=== PATIENT | female | born 1975 | race Two or more races ===

== ENCOUNTER 2018-12-17 21:19 | Emergency (ER) | payer OTHER ==
[2018-12-17] MEDS ORDERED: ACETAMINOPHEN 500 MG TABLET (FP) PO ONE (21:24)
--- NOTE | 2018-12-17 21:25 | PDOC ---
Rapid Medical Evaluation Time Seen by Provider: 12/17/18 21:22 Medical Evaluation: Allergies Allergy/AdvReac Type Severity Reaction Status Date / Time No Known Allergies Allergy Verified 12/30/15 13:26 12/17/18 21:23 HPI:headache x 3 days in the morning associated with sweating and lightheadness PE:no gross deficits ORDERS: U preg tylenol 12/17/18 21:24 Discharge Disposition - Diagnosis Headache - Referrals - Patient Instructions - Post Discharge Activity
[2018-12-17 21:28] VITALS: BP 155/79; PULSE 91; TEMP 98.5; BMI 22.2
[2018-12-17] MEDS ORDERED: METOCLOPRAMIDE HCL INJECTION 10 MG/2 ML VIAL IVPB ONE (21:30)
[2018-12-17] MEDS ORDERED: ACETAMINOPHEN 1000 MG/100 ML VIAL (NON FORMULARY) IVPB ONE (21:30)
[2018-12-17] MEDS ORDERED: SODIUM CHLORIDE 1,000 ML IV STA (21:30)
[2018-12-17] MEDS ORDERED: METOCLOPRAMIDE HCL INJECTION 10 MG/2 ML VIAL ONE (21:53)
[2018-12-17] MEDS ORDERED: ACETAMINOPHEN INJECTION 100 ML IVPB ONE (21:54)
[2018-12-17 22:39] LABS: BASO % 0.7 % (0-2.0); EOS % 2.1 % (0-4.5); HEMATOCRIT 40.8 % (32.4-45.2); HEMOGLOBIN 13.7 GM/dL (10.7-15.3); LYMPH % 41.1 % (8-40); MCH 31.5 pg (25.7-33.7); MCHC 33.5 g/dl (32.0-36.0); MEAN CELL VOLUME 93.9 fl (80-96); MEAN PLT VOLUME 8.3 fl (7.5-11.1); MONO % 6.1 % (3.8-10.2); PLATELET COUNT 224 K/MM3 (134-434); RBC 4.35 M/mm3 (3.60-5.2); WHITE BLOOD COUNT 8.4 K/mm3 (4.0-10.0)
--- NOTE | 2018-12-17 22:45 | PDOC ---
History of Present Illness - General Chief Complaint: Headache Stated Complaint: HEADACHE/TINGLING SENSATION ON R SIDE FACE Time Seen by Provider: 12/17/18 21:22 History Source: Patient Exam Limitations: No Limitations Past History - Travel Traveled outside of the country in the last 30 days: No Close contact w/someone who was outside of country & ill: No - Past Medical History Allergies/Adverse Reactions: Allergies Allergy/AdvReac Type Severity Reaction Status Date / Time No Known Allergies Allergy Verified 12/17/18 21:23 Home Medications: Ambulatory Orders No Home Medications 0 dose .ROUTE UTDICT 01/31/13 Cephalexin Monohydrate [Keflex -] 500 mg PO Q8H #30 capsule 12/30/15 Ondansetron [Zofran -] 4 mg PO TID PRN #15 tablet 12/30/15 Asthma: No COPD: No Diabetes: No HTN: Yes - Reproductive History (#): 2 Para: 2 - Immunization History Immunization Up to Date: Yes - Suicide/Smoking/Psychosocial Hx Smoking Status: No Smoking History: Never smoked Have you smoked in the past 12 months: No Number of Cigarettes Smoked Daily: 0 Information on smoking cessation initiated: No Hx Alcohol Use: No Drug/Substance Use Hx: No Substance Use Type: None Review of Systems - Review of Systems Able to Perform ROS?: Yes Comments:: 12/17/18 22:40 CONSTITUTIONAL: Absent: fever, chills, diaphoresis, generalized weakness, malaise, loss of appetite HEENT: Absent: rhinorrhea, nasal congestion, throat pain, throat swelling, difficulty swallowing, mouth swelling, ear pain, eye pain, visual Changes CARDIOVASCULAR: Absent: chest pain, loss of consciousness, palpitations, irregular heart rate, peripheral edema RESPIRATORY: Absent: cough, shortness of breath, dyspnea with exertion, orthopnea, wheezing, stridor, hemoptysis GASTROINTESTINAL: Absent: abdominal pain, abdominal distension, nausea, vomiting, diarrhea, constipation, melena, hematochezia GENITOURINARY: Absent: dysuria, frequency, urgency, hesitancy, hematuria, flank pain, genital pain MUSCULOSKELETAL: Absent: myalgia, arthralgia, joint swelling SKIN: Absent: rash, itching, pallor HEMATOLOGIC/IMMUNOLOGIC: Absent: easy bleeding, easy bruising, lymphadenopathy, frequent infections ENDOCRINE: Absent: unexplained weight gain, unexplained weight loss, heat intolerance, cold intolerance NEUROLOGIC: Present: headache, tingling to R side of face Absent: focal weakness or paresthesias, dizziness, unsteady gait, seizure, mental status changes, bladder or bowel incontinence PSYCHIATRIC: Absent: anxiety, depression, suicidal or homicidal ideation, hallucinations. Is the patient limited [place] proficient: No *Physical Exam - Vital Signs Last Vital Signs Temp Pulse Resp BP Pulse Ox 98.5 F 91 H 16 155/79 100 12/17/18 21:24 12/17/18 21:24 12/17/18 21:24 12/17/18 21:24 12/17/18 21:24 - Physical Exam Comments: 12/17/18 22:42 GENERAL: Well developed, well nourished. Awake and alert. No acute distress. HEENT: Normocephalic, atraumatic. PERRLA, EOMI. No conjunctival pallor. Sclera are non- icteric. Moist mucous membranes. Oropharynx is clear. NECK: Supple. Full ROM. No JVD. Carotid pulses 2+ and symmetric, without bruits. No thyromegaly. No lymphadenopathy. CARDIOVASCULAR: Regular rate and rhythm. No murmurs, rubs, or gallops. Distal pulses are 2+ and symmetric. PULMONARY: No evidence of respiratory distress. Lungs clear to auscultation bilaterally. No wheezing, rales or rhonchi. ABDOMINAL: Soft. Non-tender. Non-distended. No rebound or guarding. No organomegaly. Normoactive bowel sounds. MUSCULOSKELETAL Normal range of motion at all joints. No bony deformities or tenderness. No CVA tenderness. EXTREMITIES: No cyanosis. No clubbing. No edema. No calf tenderness. SKIN: Warm and dry. Normal capillary refill. No rashes. No jaundice. NEUROLOGICAL: Alert, awake, appropriate. Cranial nerves 2-12 intact. No deficits to light touch and temperature in face, upper extremities and lower extremities. No motor deficits in the in face, upper extremities and lower extremities. Normoreflexic in the upper and lower extremities. Normal speech. Toes are down- going bilaterally. Gait is normal without ataxia. PSYCHIATRIC: Cooperative. Good eye contact. Appropriate mood and affect. ED Treatment Course - LABORATORY CBC & Chemistry Diagram: 12/17/18 22:20 12/17/18 22:20 - RADIOLOGY Radiology Studies Ordered: Category Date Time Status HEAD CT WITHOUT CONTRAST [CT] Stat CT Scan 12/17/18 22:22 Ordered - Medications Given in the ED: ED Medications Discontinued Medications Generic Name Dose Route Start Last Admin Trade Name Logan CARDENAS Reason Stop Dose Admin Acetaminophen 1,000 mg 12/17/18 21:24 12/17/18 21:52 Tylenol - PO 12/17/18 21:25 Not Given ONCE ONE Diphenhydramine HCl 12.5 mg 12/17/18 21:30 12/17/18 22:05 Benadryl Injection - IVPB 12/17/18 21:31 12.5 mg ONCE ONE Administration Metoclopramide HCl 10 mg 12/17/18 21:30 12/17/18 22:10 Reglan Injection - IVPB 12/17/18 21:31 10 mg ONCE ONE Administration Medical Decision Making - Medical Decision Making 12/17/18 22:43 The patient is a 43-year-old female with no past medical history who presents to the ER today for numbness and headache to the right side of her forehead. The patient states that the headache began this morning and she said it felt like a throbbing sensation. Around 12:00 she noticed that she had visual changes where the vision in her right eye went blurry. She then states that about 5 PM this evening she noticed tingling sensation to the right side of her face. She also notes that at 5:00 she had of pain over the right temporal region and she said it was pulsing in nature. This is never happened to her before she has never had headaches. Denies loss of consciousness, dizziness, lightheadedness, fever, nausea, vomiting. A/P: Headache with tingling On exam patient is neurologically intact with no focal findings, however patient is still reporting right-sided facial tingling Differential diagnosis includes but not limited to complex migraine, stroke, giant cell arteritis, Basic labs, sedimentation rate CRP obtained Migraine cocktail given CT head ordered Sign out given to Mak Galloway NP to trend patient's lab work and CT results. Dispo depends on findings. *DC/Admit/Observation/Transfer Diagnosis at time of Disposition: Headache - Referrals - Patient Instructions - Post Discharge Activity
[2018-12-17 23:01] LABS: ALBUMIN 3.8 g/dl (3.4-5.0); ALK PHOS 52 U/L (45-117); ANION GAP 6 MMOL/L (8-16); BILIRUBIN,TOTAL 0.2 mg/dL (0.2-1); BLOOD UREA NITROGEN 8.6 mg/dL (7-18); CALCIUM 8.5 mg/dL (8.5-10.1); CHLORIDE 108 mmol/L (98-107); CO2 24 mmol/L (21-32); CREATININE 0.5 mg/dL (0.55-1.3); GLUCOSE,RANDOM 95 mg/dL (74-106); SGOT/AST 10 U/L (15-37); SGPT/ALT 15 U/L (13-61); SODIUM 138 mmol/L (136-145); TOT PROT 7.4 g/dl (6.4-8.2)
--- NOTE | 2018-12-17 23:10 | PDOC ---
*Physical Exam - Vital Signs Last Vital Signs Temp Pulse Resp BP Pulse Ox 98.5 F 91 H 16 155/79 100 12/17/18 21:24 12/17/18 21:24 12/17/18 21:24 12/17/18 21:24 12/17/18 21:24 - Physical Exam General Appearance: Yes: Appropriately Dressed. No: Apparent Distress HEENT: positive: Normal ENT Inspection Neck: positive: Trachea midline, Supple Respiratory/Chest: positive: Lungs Clear, Normal Breath Sounds. negative: Respiratory Distress, Accessory Muscle Use Cardiovascular: positive: Regular Rhythm, Regular Rate. 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, Fully Oriented, Alert, Normal Mood/ Affect, Normal Response, Motor Strength 10/17 ED Treatment Course - LABORATORY CBC & Chemistry Diagram: 12/17/18 22:20 12/17/18 22:20 - ADDITIONAL ORDERS Additional order review: Laboratory Results 12/17/18 22:20 Sodium 138 Potassium 4.0 Chloride 108 H Carbon Dioxide 24 Anion Gap 6 L BUN 8.6 Creatinine 0.5 L Est GFR (CKD-EPI)AfAm 137.39 Est GFR (CKD-EPI)NonAf 118.54 Random Glucose 95 Calcium 8.5 Total Bilirubin 0.2 AST 10 L ALT 15 Alkaline Phosphatase 52 Total Protein 7.4 Albumin 3.8 12/17/18 22:20 RBC 4.35 MCV 93.9 MCHC 33.5 RDW 15.0 MPV 8.3 Neutrophils % 50.0 D Lymphocytes % 41.1 H D Monocytes % 6.1 Eosinophils % 2.1 D Basophils % 0.7 - Medications Given in the ED: ED Medications Discontinued Medications Generic Name Dose Route Start Last Admin Trade Name Monicoq PRN Reason Stop Dose Admin Acetaminophen 1,000 mg 12/17/18 21:24 12/17/18 21:52 Tylenol - PO 12/17/18 21:25 Not Given ONCE ONE Acetaminophen 1,000 mg 12/17/18 21:30 12/17/18 22:45 Ofirmev Injection - IVPB 12/17/18 21:31 1,000 mg ONCE ONE Administration Diphenhydramine HCl 12.5 mg 12/17/18 21:30 12/17/18 22:05 Benadryl Injection - IVPB 12/17/18 21:31 12.5 mg ONCE ONE Administration Sodium Chloride 1,000 mls @ 1,000 mls/hr 12/17/18 21:30 12/17/18 22:45 Normal Saline - IV 12/17/18 22:29 1,000 mls/hr ASDIR STA Administration Metoclopramide HCl 10 mg 12/17/18 21:30 12/17/18 22:10 Reglan Injection - IVPB 12/17/18 21:31 10 mg ONCE ONE Administration Progress Note - Progress Note Progress Note: Received sign out from EMRE Stanley Briefly this a 43-year-old woman presents emergency department for evaluation of headache with tingling to the right side of the face. Patient had blurry vision starting at approximately 12:00 noon. 5:00 this evening she had a tingling sensation to the right side of her face as well as a pulsating feeling in the right temporal region. Patient denies any history of headaches or migraines. The patient has received Toradol, Reglan, IV fluids and Benadryl. Labs with ESR and CRP pending CT of the head is pending Medical Decision Making - Medical Decision Making 12/18/18 01:33 CT of the head as read by imaging load out person: No fluid air levels in the paranasal sinuses identified. Patient status post right-sided mastoidectomy. Left-sided mastoid air cells, external ear canals and middle ear cavities are filled. No additional calvarial defect evident. ESR is within normal limits. No laboratory abnormalities are noted. CRP is pending at this time I discussed the physical exam findings, ancillary test results and final diagnoses with the patient. I answered all of the patient's questions. The patient was satisfied with the care received and felt comfortable with the discharge plan and treatment plan. The patient will call their primary care physician within 24 hours to arrange follow-up and will return to the Emergency Department with any new, persistent or worsening symptoms. *DC/Admit/Observation/Transfer Diagnosis at time of Disposition: Headache Qualifiers: Headache type: unspecified Headache chronicity pattern: acute headache Intractability: not intractable Qualified Code(s): R51 - Headache - Discharge Dispostion Disposition: HOME Condition at time of disposition: Fair Decision to Admit order: No - Referrals Referrals: Viraj Hurst MD [Staff Physician] - - Patient Instructions Additional Instructions: Take Tylenol or Motrin as needed for headaches. Keep a diary of all food to eat and activities performed prior to headaches starting. Make an appointment with her primary doctor for reevaluation within the next week. Return to emergency department for worsening headache, blurry vision, dizziness , nausea, vomiting or any other concerns. Thank you very much for for choosing us to provide emergent health care needs. - Post Discharge Activity
== END 2018-12-18 01:48 | disposition home or self-care (01) ==
LOC: JER 21:19
PROC: 3E033NZ Introduction of Analgesics, Hypnotics, Sedatives into Peripheral Vein, Percutaneous Approach (ICD-10-PCS; principal; 2018-12-17)
PROC: 3E033GC Introduction of Other Therapeutic Substance into Peripheral Vein, Percutaneous Approach (ICD-10-PCS; 2018-12-17)
PROC: 3E033GC Introduction of Other Therapeutic Substance into Peripheral Vein, Percutaneous Approach (ICD-10-PCS; 2018-12-17)
DX: R51 Headache (principal)
CPT/HCPCS: 36415; 70450-TC; 80053; 84703; 85025; 85651; 86140; 96374; 96375; 99283-25; J0131; J7030

== ENCOUNTER 2021-11-16 19:49 | Emergency (ER) | payer OTHER ==
[2021-11-16 20:13] VITALS: BP 157/96; PULSE 95; TEMP 98.5; BMI 21.9
[2021-11-16 22:35] LABS: HCG,QUALITATIVE URINE Negative
[2021-11-16 22:43] LABS: HEMATOCRIT 39.8 % (32.4-45.2); HEMOGLOBIN 14.3 G/dL (10.7-15.3); MCHC 35.8 g/dl (32.0-36.0); MEAN CELL VOLUME 92.1 fl (80-96); MEAN PLT VOLUME 7.8 fl (7.5-11.1); PLATELET COUNT 239.5 10^3/uL (134-434); RBC 4.32 10^6/uL (3.60-5.2); RDW 14.2 % (11.6-15.6); WHITE BLOOD COUNT 6.7 10^3/uL (4.0-10.8)
[2021-11-16 22:49] LABS: ALBUMIN 4.2 g/dl (3.4-5.0); BILIRUBIN,TOTAL 0.6 mg/dl (0.2-1); CALCIUM 8.8 mg/dl (8.5-10); CREATININE 0.5 mg/dl (0.55-1.3)
[2021-11-16 23:13] LABS: EPITHELIAL CELLS FEW /hpf
[2021-11-17] MEDS ORDERED: KETOROLAC TROMETHAMINE 30 MG/1 ML VIAL IVPUSH ONE (01:01)
[2021-11-17] MEDS ORDERED: KETOROLAC TROMETHAMINE 15 MG/ML VIAL ONE (01:02)
== END 2021-11-17 01:28 | disposition home or self-care (01) ==
LOC: FER 19:49
PROC: 3E0333Z Introduction of Anti-inflammatory into Peripheral Vein, Percutaneous Approach (ICD-10-PCS; principal; 2021-11-16)
DX: J32.0 Chronic maxillary sinusitis (principal); R51.9 Headache, unspecified
CPT/HCPCS: 36415; 70450-TC; 70486-TC; 80053; 81003; 81015; 84703; 85027; 99284-25

== ENCOUNTER 2022-12-14 20:47 | Emergency (ER) | payer OTHER ==
[2022-12-14] MEDS ORDERED: PHENAZOPYRIDINE HCL 100 MG TABLET (FP) PO ONE (21:01)
[2022-12-14 21:02] VITALS: BP 156/97; PULSE 104; RESP 18; TEMP 99.1; BMI 18.6
[2022-12-14] MEDS ORDERED: PHENAZOPYRIDINE HCL 100 MG TABLET (FP) ONE (21:02)
[2022-12-14] MEDS ORDERED: NITROFURANTOIN MACROCRYSTAL 50 MG CAPSULE (FP) ONE (21:19)
[2022-12-14 21:24] LABS: EPITHELIAL CELLS FEW /hpf
[2022-12-14] MEDS ORDERED: NITROFURANTOIN MACROCRYSTAL 50 MG CAPSULE (FP) PO SCH (21:30)
== END 2022-12-14 21:26 | disposition home or self-care (01) ==
LOC: FER 20:47
DX: R30.0 Dysuria (principal); N30.01 Acute cystitis with hematuria
CPT/HCPCS: 81003; 81015; 84703; 87086; 87186; 99283-25

== ENCOUNTER 2025-02-02 16:11 | Emergency (ER) | payer OTHER ==
[2025-02-02 16:32] VITALS: TEMP 98.2; BMI 20.7
[2025-02-02] MEDS ORDERED: ACETAMINOPHEN INJECTION 100 ML ONE (16:44)
[2025-02-02] MEDS ORDERED: METHOCARBAMOL 500 MG TABLET ONE (16:51)
[2025-02-02] MEDS: ACETAMINOPHEN 1000 MG/100 ML BAG IVPB ONE (17:07)
[2025-02-02] MEDS: METHOCARBAMOL 750 MG TABLET PO ONE (17:07)
[2025-02-02 17:34] LABS: INR 1.0 (0.83-1.09); PROTHROMBIN TIME (PATIENT) 10.9 SEC (9.7-13.0)
[2025-02-02 17:36] LABS: ACTIVATED PTT 29.3 SECONDS (25.2-36.5)
[2025-02-02 18:10] LABS: GLUCOSE,RANDOM 117 mg/dL (74-106); TOT PROT 8.1 g/dl (6.4-8.2)
[2025-02-02 18:12] LABS: CO2 21 mmol/L (21-32)
[2025-02-02 18:13] LABS: ALK PHOS 60 U/L (40-150)
[2025-02-02 18:16] LABS: CREATININE 0.60 mg/dL (0.55-1.3); SGOT/AST 21 U/L (5-34); SGPT/ALT 14 U/L (0-55)
[2025-02-02] MEDS: KETOROLAC TROMETHAMINE 30 MG/1 ML VIAL IVPUSH ONE (18:40)
[2025-02-02 18:42] LABS: HIV INTERPRETATION NEGATIVE (NEGATIVE)
[2025-02-02 18:43] LABS: HCV DIAGNOSTIC IN-HOUSE W/RFLX NON-REACTIVE (NONREACTIVE)
[2025-02-02 19:03] LABS: MCHC 32.8 g/dl (32.2-35.5); MEAN CELL VOLUME 93.7 fl (79.4-94.8)
[2025-02-02 19:04] LABS: IMMATURE PLATELET FRACTION # 3.30 x10^3/uL; MEAN PLT VOLUME 10.4 fl (9.4-12.3)
[2025-02-02 19:17] VITALS: BP 126/80; PULSE 92; RESP 16
[2025-02-02 20:09] LABS: RDW 47.1 % (12.2-17.1)
== END 2025-02-02 19:46 | disposition home or self-care (01) ==
LOC: JER 16:11
PROC: 3E033NZ Introduction of Analgesics, Hypnotics, Sedatives into Peripheral Vein, Percutaneous Approach (ICD-10-PCS; principal; 2025-02-02)
DX: R07.89 Other chest pain (principal); R51.9 Headache, unspecified; V43.62XA Car passenger injured in collision with other type car in traffic accident, initial encounter; Y92.410 Unspecified street and highway as the place of occurrence of the external cause
CPT/HCPCS: 36415; 70450-TC; 71046-TC-FY; 80053; 82550; 84484; 85027; 85610; 85730; 86803; 87389; 93005; 93010; 99285-25